=== PATIENT | male | born 1950 | race Caucasian/White ===

== ENCOUNTER 2020-12-15 16:53 | Emergency (ER) | payer MEDICARE ==
[2020-12-15] MEDS ORDERED: LIDOCAINE HCL 1% 20 ML VIAL ONE (17:05)
[2020-12-15] MEDS ORDERED: NEOMY SULF/BACITRA/POLYMYXIN B 1 EACH PACKET TP ONE (17:15)
[2020-12-15] MEDS ORDERED: TETANUS/DIPHTHERIA TOXOID [ADULT] 0.5 ML VIAL IM ONE (17:40)
== END 2020-12-15 18:30 | disposition home or self-care (01) ==
LOC: EDH 16:53
DX: S91.201A Unspecified open wound of right great toe with damage to nail, initial encounter (principal); Z88.0 Allergy status to penicillin; W22.8XXA Striking against or struck by other objects, initial encounter; Y93.89 Activity, other specified; Y92.098 Other place in other non-institutional residence as the place of occurrence of the external cause; Y99.8 Other external cause status
CPT/HCPCS: 11730; 90471; 90714